=== PATIENT | male | born 1960 | race American Indian/Alaskan Native ===

== ENCOUNTER 2019-06-14 09:22 | Emergency (ER) | payer MEDICARE ==
--- NOTE | 2019-06-14 10:11 | Emergency Department Report ---
ED Back Pain/Injury HPI - General Chief Complaint: Back Pain/Injury Stated Complaint: BACK PAIN Time Seen by Provider: 06/14/19 10:06 Source: patient Limitations: No Limitations - History of Present Illness Initial Comments: Mr. Clark is a 58 yo male with hx of HIV, HTN, DVT, septic arthritis who presents with lower back pain for one week. Central pain sharp pain. Worse with movement. No trauma. No fever. No hx of IV Drug use. No hx of back problems. Recently with coughing he has had urinary incontinence. He is able to hold his urine. However, he when he cough, urine comes out. He has been seen by his personal physician for bladder and kidney issues. Denies leg weakness. Denies stool incontinence. He takes oxycodone for pain in his right shoulder and right hip. He has run out of this medications. His PCP is located at [facility]. Mr. Clark is able to give a full complete hx. Actually, he is quite talkative. MD Complaint: back pain -: Gradual, week(s) (1) Similar Symptoms Previously: No Severity: moderate Severity scale (0 -10): 7 Quality: sharp Consistency: constant Worsens With: movement Associated Symptoms: incontinence. denies: weakness, numbness, difficulty walking - Related Data Home Medications Medication Instructions Recorded Confirmed Last Taken Efavirenz/Emtricit/Tenofovr Df 1 each PO QHS 11/24/13 03/09/14 03/08/14 [Atripla Tablet] Gug989/Iron/Folic Acd 1 each PO DAILY 11/24/13 03/09/14 03/07/14 [Vinate-M Tablet] Triamcinolone 0.1% [Kenalog 0.1% 1 applic TP BID 11/24/13 03/09/14 03/08/14 CREAM] Zidovudine 300 mg PO Q12H 11/24/13 03/09/14 03/08/14 amLODIPine 10 mg PO DAILY 11/24/13 03/09/14 03/09/14 05:00 oxyCODONE /ACETAMINOPHEN [Percocet 1 tab PO TID PRN 11/24/13 03/09/14 03/07/14 5/325 mg] Potassium Chloride [Klor-Con 10] 10 meq PO QDAY 03/03/14 03/09/14 03/09/14 05:00 Previous Rx's Medication Instructions Recorded Last Taken Type HYDROcodone/ACETAMINOPHEN [[place] 1 each PO Q4HR PRN #15 tablet 03/09/14 Unknown Rx 5/325 Tablet] HYDROcodone/APAP 5-325 [[place] 1 each PO Q6HR PRN #15 tablet 03/09/14 Unknown Rx 5/325] oxyCODONE /ACETAMINOPHEN [Percocet 1 tab PO Q6HR PRN #10 tablet 06/14/19 Unknown Rx 5/325] Allergies Allergy/AdvReac Type Severity Reaction Status Date / Time Penicillins Allergy Itching Verified 11/24/13 12:40 sulfamethoxazole AdvReac Itching Verified 03/09/14 07:15 [From Bactrim] trimethoprim [From Bactrim] AdvReac Itching Verified 03/09/14 07:15 ED Review of Systems ROS: Stated complaint: BACK PAIN Other details as noted in HPI Comment: All other systems reviewed and negative Constitutional: denies: fever, malaise Respiratory: denies: cough Cardiovascular: denies: chest pain Gastrointestinal: denies: abdominal pain, nausea, vomiting Musculoskeletal: back pain ED Past Medical Hx - Past Medical History Previous Medical History?: Yes Hx Hypertension: Yes (FOR 32 YRS, ON AMLODIPINE. TOOK THIS AM.) Hx Deep Vein Thrombosis: Yes (RIGHT LEG IN 2011) Hx Liver Disease: No Hx Renal Disease: No Hx Arthritis: Yes (SEPTIC) Hx Seizures: No Hx Asthma: No Hx HIV: Yes (X 31 YRS) - Surgical History Past Surgical History?: Yes Additional Surgical History: Multiple ortho surgery - Social History Smoking Status: Current Every Day Smoker Substance Use Type: None - Medications Home Medications: Home Medications Medication Instructions Recorded Confirmed Last Taken Type Efavirenz/Emtricit/Tenofovr Df 1 each PO QHS 11/24/13 03/09/14 03/08/14 History [Atripla Tablet] Oga354/Iron/Folic Acd 1 each PO DAILY 11/24/13 03/09/14 03/07/14 Histo ry [Vinate-M Tablet] Triamcinolone 0.1% [Kenalog 0.1% 1 applic TP BID 11/24/13 03/09/14 03/08/14 History CREAM] Zidovudine 300 mg PO Q12H 11/24/13 03/09/14 03/08/14 History amLODIPine 10 mg PO DAILY 11/24/13 03/09/14 03/09/14 05:00 History oxyCODONE /ACETAMINOPHEN [Percocet 1 tab PO TID PRN 11/24/13 03/09/14 03/07/14 History 5/325 mg] Potassium Chloride [Klor-Con 10] 10 meq PO QDAY 03/03/14 03/09/14 03/09/14 05:00 History HYDROcodone/ACETAMINOPHEN [[place] 1 each PO Q4HR PRN #15 tablet 03/09/14 Unknown Rx 5/325 Tablet] HYDROcodone/APAP 5-325 [[place] 1 each PO Q6HR PRN #15 tablet 03/09/14 Unknown Rx 5/325] oxyCODONE /ACETAMINOPHEN [Percocet 1 tab PO Q6HR PRN #10 tablet 06/14/19 Unknown Rx 5/325] ED Physical Exam - General Limitations: No Limitations General appearance: alert, in no apparent distress, other (sitting upright with legs crossed at the ankle) - Head Head exam: Present: atraumatic, normocephalic - Eye Eye exam: Present: normal appearance - ENT ENT exam: Present: mucous membranes moist - Neck Neck exam: Present: normal inspection, full ROM - Respiratory Respiratory exam: Present: normal lung sounds bilaterally. Absent: respiratory distress, wheezes, rales, rhonchi - Cardiovascular Cardiovascular Exam: Present: regular rate, normal rhythm, normal heart sounds. Absent: systolic murmur, diastolic murmur, rubs, gallop - GI/Abdominal GI/Abdominal exam: Present: soft, normal bowel sounds. Absent: distended, tenderness, guarding, rebound - Rectal Rectal exam: Present: deferred - Extremities Exam Extremities exam: Present: normal inspection - Back Exam Back exam: Present: normal inspection, full ROM. Absent: tenderness, CVA tenderness (L), muscle spasm, paraspinal tenderness, vertebral tenderness - Neurological Exam Neurological exam: Present: alert, oriented X3 - Psychiatric Psychiatric exam: Present: normal affect, normal mood - Skin Skin exam: Present: warm, dry, intact, normal color. Absent: rash ED Course Vital Signs 06/14/19 09:33 Temperature 97.6 F Pulse Rate 97 H Respiratory 20 Rate Blood Pressure 158/100 O2 Sat by Pulse 100 Oximetry ED Medical Decision Making - Medical Decision Making Mr. Clark is a 58 yo male who has lower back pain, moderate sharp. No red f lags exist such as trauma, weight loss, neurologic symptoms, advanced age, fever, IV drug use, hx of cancer or steroid use. He appears comfortable. Suspect DDD vs lumbar strain. Mr. Clark endorses stress incontinence. I do not suspect cauda equina or cord compression syndrome in this scenario. I have referred him to his PCP at [facility] to further address this matter. I have also referred Mr. Clark to a urologist. Mr. Clark has used opioid type medication oxycodone. He does not have this medication. I have provided prescription of 10 tablets of Percocet. He understands to arrange pain management through his primary physician. Critical care attestation.: If time is entered above; I have spent that time in minutes in the direct care of this critically ill patient, excluding procedure time. ED Disposition Clinical Impression: Back pain, Stress incontinence Disposition: DC- TO HOME OR SELFCARE Is pt being admited?: No Does the pt Need Aspirin: No Condition: Stable Instructions: Acute Low Back Pain (ED) Prescriptions: oxyCODONE /ACETAMINOPHEN [Percocet 5/325] 1 tab PO Q6HR PRN #10 tablet PRN Reason: Pain Referrals: SHANIQUA BOYCE MD [Staff Physician] - 3-5 Days
[2019-06-14] MEDS ORDERED: oxyCODONE /ACETAMINOPHEN 5-325MG TAB PO ONE (10:23)
[2019-06-14] MEDS ORDERED: KETOROLAC 30 MG/1 ML INJ IM ONE (10:23)
[2019-06-14 10:59] VITALS: BP 142/95
== END 2019-06-14 12:03 | disposition home or self-care (01) ==
LOC: ED 09:22
DX: M54.5 Low back pain (principal); N39.3 Stress incontinence (female) (male); I10 Essential (primary) hypertension; M00.80 Arthritis due to other bacteria, unspecified joint; F17.200 Nicotine dependence, unspecified, uncomplicated; Z98.890 Other specified postprocedural states; Z79.899 Other long term (current) drug therapy; Z88.0 Allergy status to penicillin; Z88.2 Allergy status to sulfonamides
CPT/HCPCS: 96372; 99283; J1885